=== PATIENT | male | born 1970 | race Hispanic/Latino ===

== ENCOUNTER 2019-06-19 16:05 | Inpatient (IN) | payer SELFPAY ==
[2019-06-19 17:00] LABS: #Eosinphils 0.3 thou/uL (0.0-0.7); #Lymphocytes 2.2 thou/uL (1.20-3.40); #Monocytes 0.9 thou/uL (0.11-0.59); #Neutrophils 7.4 thou/uL (1.40-6.50); %Basophils 0.4 % (0.0-1.0); %Eosinophils 2.8 % (0.0-10.0); %Lymphocytes 20.3 % (21.0-51.0); %Neutrophils 68.6 % (42.0-75.0); Hemoglobin 13.9 g/dL (14.0-18.0); Mean Corpuscular HGB CONC 33.7 g/dL (32.0-36.0); Mean Corpuscular Hemoglobin 30.6 pg (27.0-31.0); Mean Corpuscular Volume 90.9 fL (78.0-98.0); Mean Platelet Volume 8.4 fL (7.4-10.4); Platelet Count 236 thou/uL (130-400); RBC Distribution Width 12.4 % (11.5-14.5); Red Blood Cell (RBC) Count 4.53 mill/uL (4.70-6.10); White Blood Cell (WBC) Count 10.7 thou/uL (4.8-10.8)
[2019-06-19 17:27] LABS: ALT (SGPT) 20 U/L (8-55); AST (SGOT) 17 U/L (5-34); Alkaline Phosphatase 89 U/L (40-110); Anion Gap 12 mmol/L (10-20); BUN (Urea Nitrogen) 14 mg/dL (8.9-20.6); Bilirubin, Total 0.6 mg/dL (0.2-1.2); Calc. Creatinine Clearance 0 mL/min (70-130); Calcium 8.5 mg/dL (7.8-10.44); Carbon Dioxide 23 mmol/L (22-29); Chloride 110 mmol/L (98-107); Estimated GFR-MDRD 80; Globulin 2.4 g/dL (2.4-3.5); Glucose 97 mg/dL (70-105); Protein, Total 6.4 g/dL (6.0-8.3); Sodium 141 mmol/L (136-145)
--- NOTE | 2019-06-19 19:03 | RAD ---
THREE VIEWS RIGHT LONG FINGER: Indication: History of surgery in [place]. Comparison: None. FINDINGS: There is are two sets of percutaneous pins transfixing the right long finger PIP joint. There is dest ructive osteolysis involving the base of the right long finger, middle phalanx as well as the distal aspect of the right long finger proximal phalangeal head, suspicious for infection. There is prominen t soft tissue swelling of the right long finger. IMPRESSION: Findings suspicious for septic arthritis and osteomyelitis of the right long finger PIP joint with as sociated soft tissue swelling. POS: BH
[2019-06-19] MEDS ORDERED: Morphine 4 MG/ML VIAL ONE (19:44)
[2019-06-19] MEDS ORDERED: Vancomycin HCl 1.25 GM in Sodium Chloride 0.9% 250 ML 250 ML IVPB SCH (20:00)
[2019-06-19] MEDS ORDERED: Ondansetron PF 4 MG/2 ML Vial ONE (20:32)
[2019-06-19] MEDS ORDERED: Ondansetron ODT 4 MG TAB SL PRN (22:14)
[2019-06-19] MEDS ORDERED: HYDROcodone/Acetaminophen 5/325 mg Tablet PO PRN ×2 (22:14)
[2019-06-19] MEDS ORDERED: Acetaminophen 325 MG TAB PO PRN (22:14)
[2019-06-19] MEDS ORDERED: Ondansetron PF 4 MG/2 ML Vial IVP PRN (22:14)
[2019-06-19] MEDS ORDERED: Sodium Chloride 0.9% 1,000 ML IV SCH (22:15)
[2019-06-19 23:04] VITALS: BMI 28.8
[2019-06-20] MEDS ORDERED: Vancomycin HCl 1.25 GM in Sodium Chloride 0.9% 250 ML 250 ML IVPB SCH (04:00)
[2019-06-20] MEDS ORDERED: Ketorolac Tromethamine 30 MG/ML VIAL ONE (10:27)
[2019-06-20] MEDS ORDERED: Dexamethasone 20 MG/5 ML VIAL ONE (10:27)
[2019-06-20] MEDS ORDERED: PROPOFOL 200 MG/20 ML VIAL ONE (10:27)
[2019-06-20] MEDS ORDERED: Ondansetron PF 4 MG/2 ML Vial ONE (10:27)
[2019-06-20] MEDS ORDERED: ePHEDrine/0.9% NaCl/PF SYRINGE 50 mg/10 ml ONE (10:27)
[2019-06-20] MEDS ORDERED: Lidocaine 1% PF 5 ML VIAL ONE (10:27)
[2019-06-20] MEDS ORDERED: Bupivacaine PF 0.5% 30 ML VIAL ONE (12:32)
[2019-06-20] MEDS ORDERED: Thrombin 5000 UNITS/5 ML VIAL ONE (12:33)
[2019-06-20] MEDS ORDERED: Bacitracin Zinc Ointment 30 gm TUBE ONE ×2 (12:33→15:09)
[2019-06-20] MEDS ORDERED: Sodium Chloride 0.9% 10 ML ONE (12:33)
[2019-06-20] MEDS ORDERED: Tobramycin Sulfate 1.2 GM VIAL ONE (12:44)
[2019-06-20] MEDS ORDERED: Fentanyl 100 MCG/2 ML VIAL ONE ×2 (12:51)
[2019-06-20] MEDS ORDERED: Midazolam HCl 2 mg/2 ml Vial ONE (12:51)
[2019-06-20] MEDS ORDERED: Ondansetron HCl/PF 4 MG/2 ML Vial IVP PRN (14:48)
[2019-06-20] MEDS ORDERED: Promethazine HCl 25 MG/ML VIAL IM PRN (14:48)
[2019-06-20] MEDS ORDERED: Promethazine HCl 25 MG/ML VIAL SLOW IVP PRN (14:48)
--- NOTE | 2019-06-20 15:23 | RAD ---
Intraoperative imaging of the right long finger: 06/20/2019 COMPARISON: 06/19/2019 HISTORY: Wire removal FINDINGS: The prior imaging demonstrated 2 screws traversing the third proximal interphalangeal joint which have now been removed. There is osseous destruction centered at the third proximal interphalangeal joint with associated soft tissue swelling again concerning for osteomyelitis/septic arthritis. IMPRESSION: Removal of third digit hardware. Please see above discussion.
[2019-06-20] MEDS ORDERED: HYDROcodone/Acetaminophen 7.5/325 mg Tablet PO PRN (19:34)
[2019-06-20] MEDS: Vancomycin 1.5 GRAM/300 ML BAG 1.5 GM in Premix Bag 1 BAG IVPB SCH (21:16)
[2019-06-20] MEDS: Ketorolac Tromethamine 30 MG/ML VIAL IVP SCH (21:17)
[2019-06-21] MEDS: Ketorolac Tromethamine 30 MG/ML VIAL IVP SCH ×4 (02:41→19:06)
[2019-06-21 05:38] LABS: #Eosinphils 0.2 thou/uL (0.0-0.7); #Lymphocytes 1.8 thou/uL (1.20-3.40); #Monocytes 0.7 thou/uL (0.11-0.59); #Neutrophils 9.2 thou/uL (1.40-6.50); %Basophils 0.2 % (0.0-1.0); %Eosinophils 1.3 % (0.0-10.0); %Lymphocytes 15.4 % (21.0-51.0); %Monocytes 5.5 % (0.0-10.0); %Neutrophils 77.5 % (42.0-75.0); Hemoglobin 13.7 g/dL (14.0-18.0); Mean Corpuscular HGB CONC 33.2 g/dL (32.0-36.0); Mean Corpuscular Hemoglobin 30.2 pg (27.0-31.0); Mean Corpuscular Volume 90.9 fL (78.0-98.0); Mean Platelet Volume 9.3 fL (7.4-10.4); Platelet Count 213 thou/uL (130-400); RBC Distribution Width 12.1 % (11.5-14.5); Red Blood Cell (RBC) Count 4.55 mill/uL (4.70-6.10); White Blood Cell (WBC) Count 11.9 thou/uL (4.8-10.8)
[2019-06-21] MEDS: Vancomycin 1.5 GRAM/300 ML BAG 1.5 GM in Premix Bag 1 BAG IVPB SCH ×2 (10:36→20:35)
--- NOTE | 2019-06-21 19:18 | CON ---
DATE OF CONSULTATION: 06/21/2019 REASON FOR CONSULTATION: Right middle finger osteomyelitis. HISTORY OF PRESENT ILLNESS: A 48-year-old, no significant past medical history, who injured his right middle finger at the beginning of March in [place]. He was doing some repairs in his home and cut his finger with an aluminium piece. The wound closed and got better and then started developing inflammatory changes. He went to a local doctor, and they did a surgical debridement and gave him antibiotics for a week intravenously. He does not know any results of cultures. The inflammatory process resolved, and the finger returned to normal appearance, but then, there was a recrudescence of inflammatory process. At the moment of this event, he had only 2 remaining virginie left in the surgical site. All the other stitches had been removed. The patient had been here in town to visit family members when he developed this recrudescence, and he came to be evaluated and was admitted. Dr. Currie performed a surgical debridement. The operative report is not yet available. The patient currently denies any headaches, visual symptoms, sore throat, odynophagia, or dysphagia. No cough, sputum production, or chest pain. No abdominal pain. No diarrhea. No genitourinary symptoms. No other joint symptoms. PAST MEDICAL HISTORY: Negative. PAST SURGICAL HISTORY: Includes this process in the right middle finger. ALLERGIES: HE HAS NO KNOWN DRUG ALLERGIES. CURRENT MEDICATIONS: 1. Hydrocodone. 2. Toradol. 3. Vancomycin. FAMILY HISTORY: Noncontributory. SOCIAL HISTORY: Current smoker. Does not drink alcoholic beverages. 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 He has family in town and was visiting them. PHYSICAL EXAMINATION: VITAL SIGNS: His temperature has been normal throughout the hospital stay. Other vital signs are normal. SKIN: Shows the right digit dressing was not removed, but there was a picture, which shows 2 metal pins extruding through the skin at the base of the distal phalanx of the right middle finger. The digit is obviously swollen. There is no lymphadenopathy. The patient has a peripheral IV access and is urinating normally in the toilet. HEENT: Noncontributory. NECK: Supple. LUNGS: Symmetric, clear breath sounds. HEART: S1 and S2. Regular rate. ABDOMEN: Soft. Not distended or tender. No ascites. No bladder distention. EXTREMITIES: Pulses are 2+ in dorsalis pedis. Cap refill normal. NEUROLOGIC: Nonfocal including cognitive function. LABORATORY DATA: White cell count was 10.7 and 11.9, hemoglobin 13, platelets 213 with 77% neutrophils. Chemistry was essentially normal. We have 7 samples for cultures. Looks like all the cultures are for bacterial, aerobic, and anaerobic. I do not see any fungal or mycobacterial. ASSESSMENT: Injury to right middle finger about 3 months ago in [place], subsequent persistent inflammatory process despite surgical debridement in [place] followed by an antimicrobial therapy. DISCUSSION: The differential diagnosis includes routine bacterial pathogens such as MRSA, gram-negative rods, Streptococci versus fungal/mycobacterial infections. We will call the Lab and see if we can process for fungal and mycobacterial cultures with the specimen submitted. Add Rocephin to current regimen. Job ID: [id number]
[2019-06-22] MEDS: Ketorolac Tromethamine 30 MG/ML VIAL IVP SCH ×4 (02:45→19:35)
[2019-06-22 07:37] LABS: Vancomycin, Trough 16.1 ug/mL
[2019-06-22] MEDS: Vancomycin 1.5 GRAM/300 ML BAG 1.5 GM in Premix Bag 1 BAG IVPB SCH ×3 (10:05→22:12)
--- NOTE | 2019-06-22 16:49 | PRG ---
DATE OF SERVICE: 06/22/2019 SUBJECTIVE: Feeling about the same, no headaches, shortness of breath, or abdominal pain. No diarrhea. OBJECTIVE: VITAL SIGNS: He is afebrile. Exam is unchanged from yesterday. LABORATORY DATA: White cell count 11.9, hemoglobin 13.7, and platelets 213. Creatinine normal. Microbiology with Staphylococcus species in one finger tissue sample. We have pending acid-fast and fungal cultures, maybe just acid-fast, I do not see any fungal cultures here. ASSESSMENT AND DISCUSSION: Injury right middle finger about 3 months ago in [place] with persisting inflammatory process with the possibility of osteomyelitis. The pathology results indicated acute inflammation seen on permanent sections embedded in fibrous tissues. The bone appeared unremarkable, so it looks like we may be able to transition to oral antimicrobial therapy depending on the susceptibility of the organism, hopefully tomorrow, we will have more details to allow discharge planning, may be a combination of Cipro and rifampin or a similar combination for protracted period of time. The final results of the other cultures will have to be monitored until the end of therapy. We could do that through the outpatient area. Job ID: [id number]
[2019-06-23] MEDS: Ketorolac Tromethamine 30 MG/ML VIAL IVP SCH ×3 (02:04→14:41)
[2019-06-23] MEDS: Vancomycin 1.5 GRAM/300 ML BAG 1.5 GM in Premix Bag 1 BAG IVPB SCH (09:53)
--- NOTE | 2019-06-23 12:05 | PRG ---
DATE OF SERVICE: 06/23/2019 SUBJECTIVE: James is a 48-year-old male, who is status post incision, drainage, and washout of the right long finger. He had an I and D with an antibiotic spacer placed. Wound Care is taking care now and doing daily dressing changes. Also, Dr. Herring has seen the patient for osteomyelitis. OBJECTIVE: His splint is intact. It has been changed today already by Wound Care. He is neurovascularly intact. He has good capillary refill in digit. IMPRESSION: Postop day #3, right long finger I and D with antibiotic spacer placement at the PIP joint. PLAN: Continue dressing changes. The patient will be discharged home with appropriate antibiotics per Dr. Herring. Job ID: [id number]
[2019-06-23 15:58] VITALS: BP 139/99; TEMP 97.7
--- NOTE | 2019-06-26 09:07 | DIS ---
DATE OF ADMISSION: 06/19/2019 DATE OF DISCHARGE: 06/23/2019 HOSPITAL ADMISSION DIAGNOSES: 1. Osteomyelitis pin tract, previous K-wire track beginning at the middle portion of the middle phalanx into the proximal phalangeal joint remnant. 2. Intramedullary osteomyelitis, middle phalanx. 3. Intramedullary osteomyelitis, proximal phalanx. 4. Residual joint space infection at resected joint, proximal phalangeal joint, right middle finger. HOSPITAL DISCHARGE DIAGNOSES: 1. Osteomyelitis pin tract, previous K-wire track beginning at the middle portion of the middle phalanx into the proximal phalangeal joint remnant. 2. Intramedullary osteomyelitis, middle phalanx. 3. Intramedullary osteomyelitis, proximal phalanx. 4. Residual joint space infection at resected joint, proximal phalangeal joint, right middle finger. HOSPITAL PROCEDURES: 1. All on June 20, 2019 would be bone cortex excision for osteomyelitis at the proximal and middle phalanx. 2. Debridement of bone down to including the pin track osteomyelitis debridement. 3. C-arm supervision for application of antibiotic beads. HOSPITAL COURSE: The patient was admitted, underwent the procedures listed above on that day. Tolerated well, but because of the question of recurrent osteomyelitis, we consulted Dr. Herring, Infectious Disease, who wanted to wait for the cultures to became more apparent, results came more apparent before we discharge him to determine whether or not he would need to have intravenous antibiotics. His culture reports from the surgical specimen showed from the bone fragments that he clearly had, from the intraoperative June 20 procedures, acute inflammation consistent with possible osteomyelitis. His final disposition from Dr. Herring, performed on June 23, 2019, recommended that the patient undergo antibiotic treatment in the postoperative period. With dressing changes, his wound showed no gross infection, he had it close because of antibiotic beads. The previous pin tract site showed no drainage. I had easily debrided the ulnar aspect of the middle phalanx. So, he was prepared for discharge. DISCHARGE DISPOSITION: The patient to have a regular diet. Follow up with both us and Dr. Herring. We take antibiotics per Dr. Herring both duration type or versus IV. His diet is regular. Once the infection is cleared, approximately six weeks from now, if his sedimentation rate is not showing any elevation and his wound remains stable, he will be prepared for definitive treatment, which at this point, I believe, we will recommend fusion as opposed to placing a prosthesis in area that was so grossly infected. Dr. Herring at the time of discharge, recommended combination of Cipro and rifampin orally for protracted period of time at least six weeks and felt that the bone cultures did not show a definitive pathogen for osteomyelitis, although there was a history of osteomyelitis. There was a finding of Staph aureus, Staphylococcus species on one finger tissue sample. Job ID: [id number]
--- NOTE | 2019-06-26 09:07 | OP ---
DATE OF PROCEDURE: 06/20/2019 PREOPERATIVE DIAGNOSIS: Osteomyelitis pin tract, proximal phalanx. POSTOPERATIVE FINDINGS: 1. Osteomyelitis pin tract, proximal phalanx. 2. Osteomyelitis intramedullary, proximal phalanx. 3. Osteomyelitis, intramedullary proximally on the base of proximal phalanx. PROCEDURES PERFORMED: 1. Bone cortex excision for osteomyelitis of a proximal phalanx, a remnant of subchondral bone to the base of the middle phalanx. 2. Debridement of bone, 17275 separate site, which was the pin tract site and osteomyelitis of the ulnar to two pins of the middle finger. 3. C-arm supervision. 4. Application of antibiotic beads in the joint and both open intramedullary canals. CULTURES SENT: 1. Intramedullary canal at the proximal phalanx. 2. Intramedullary canal of middle phalanx. 3. Within the joint itself. TOURNIQUET TIME: 91 minutes. ESTIMATED BLOOD LOSS: 50 mL. SPECIMENS SENT: 1. Soft bone at the pin tract intramedullary. 2. Proximal phalanx and no gross infection at the middle phalanx. FINDINGS: 1. Soft bone at the pin tract site and intermittently portion of the proximal base of the middle phalanx. 2. No such gross findings of soft bone at the distal aspect of the remaining neck and intramedullary canal of the proximal phalanx. INDICATIONS: The patient underwent a procedure in [place] and that led to infection, which he describes was involving the bone. They then resected the joint completely, placed large K-wires, 0.062 across the joint, and then he came to [facility]. While here, he developed gross infection with drainage, reported to our emergency room, which then led him to the hand surgeon on-call, Dr. Franko Currie. He on June 20, 2019 did this procedure. DESCRIPTION OF PROCEDURE: After successful general endotracheal anesthesia, the limb was prepped and draped. C-arm was brought to the field. We identified the joint, done a time-out appropriately. Then, we removed both of the wires. There was gross purulence on the edge of the wire and draining from the hole in the middle portion of the middle phalanx especially on the ulnar aspect. We used a curette to debride this bone that was soft bone, so the bone cortex was excised and debrided and a hole was made via almost 3 mm wire that is being only a K-wire hole, so that we could drain it. This led to intramedullary canal. In the canal, after we opened the joint using the extensor tendon mechanism, we were able to remove the wires, it was soft and it measured at bone within the base of the middle phalanx, so using the curette, Bethel blade, and different size curettes, we completely debrided the bone cortex within the canal. We likely did same debridement of joint, where there was some very thick mucopurulent layer and then there was a small mucopurulent layer at the proximal phalanx to the distal 1/3rd. Once we debrided all these areas, we irrigated with 6 L normal saline and Pulsavac pressure with antibiotics inside. We obtained hemostasis and decided not to re-K-wire this area. The volar plate was intact. The extensor mechanism, although grossly intact, there was now a bone defect of almost 1 cm where the previous articular surface had been and had gross infection to the joint and osteomyelitis. We decided to then place antibiotic beads after debridement of the plate, deflated tourniquet, mixed the beads with tobramycin powder, and then performed an almost prosthesis shape with an implant 1 cm long into the base of the intramedullary canal of the middle phalanx and then placed a small ball width of antibiotics within the canal of the neck of the proximal phalanx. We deflated the tourniquet, obtained hemostasis, closed the wound with interrupted 4-0 nylon simple pattern. The patient was prepared for discharge after he received 3 doses of antibiotics and we contacted family members. This led to 30 hours of admission time. DISCHARGE DIAGNOSES: Clearly then as listed above: 1. Osteomyelitis pin tract. 2. Osteomyelitis intramedullary both of these of the middle phalanx. 3. Osteomyelitis, intramedullary canal of the proximal phalanx. 4. Joint defect, previously resected joint with infection in the joint space remnant. Job ID: [id number]
--- NOTE | 2019-07-20 20:31 | PQF ---
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 Clinical indicators are provided on the bottom of this form for your review Can you please further clarify if Osteomyelitis is a complication of recent surgery or not? Please check appropriate box(s): [ ] Osteomyelitis of finger as a complication of recent surgery [ ] Osteomyelitis of finger not a complication of recent surgery [ ] Other diagnosis [ ] Unable to determine In addition, please specify: Present on Admission (POA): [ ] Yes [ ] No [ ] Unable to determine CLINICAL INDICATORS - SIGNS / SYMPTOMS / LABS ED Notes 06/19 "Presents with right third digit pain and swelling" ED Notes 06/19 "Patient states the pins in his finger are moving. Patient reports pus from site of pins" ED Notes 06/19 "Surgical history of orthopedic surgery right 3rd digit 2018" ED Notes 06/19 "right middle finger OM" Consult 06/21 "they did a surgical debridement" Consult 06/21 "he had only 2 remaining virginie left in the surgical site" PN pg.1- injury right middle finger about 3 ,months ago RISK FACTORS Recurrent Smoker- Consult pg.1 Osteomyelitis- PN pg.1 TREATMENT: Infectious Consult- Dr. Herring IV Fluids- MAR IV Antibiotics-MAR Finger X ray 06/19 Debridement of Bone- OP report (This form is maintained as a part of the permanent medical record) 2014 [employer]. All Rights Reserved [email or web address]
== END 2019-06-23 16:12 | disposition home or self-care (01) | DRG 517 ==
LOC: ERS 16:05 → SURG B 19:22 → OBSVTOIN 19:22
PROVIDERS: ADMIT Orthopaedic Surgery Hand Surgery; ATTEND Orthopaedic Surgery Hand Surgery
PROC: 0PBT0ZZ Excision of Right Finger Phalanx, Open Approach (ICD-10-PCS; principal; 2019-06-20)
DX: M86.8X4 Other osteomyelitis, hand (principal); F17.210 Nicotine dependence, cigarettes, uncomplicated; Z79.899 Other long term (current) drug therapy
CPT/HCPCS: 36415; 76000; 80053; 80202; 83605; 85025; 85652; 87070; 87077; 87102; 87116; 87186; 87205; 87206; 88307; 88331; 96365; 96366; 96375; C1713; J1100; J1885; J2001; J2250; J2270; J2405; J2704; J3010; J3260; J3370; J3490; J7050; S0020